=== PATIENT | female | born 1945 | race Caucasian/White ===

== ENCOUNTER 2017-01-21 17:21 | Inpatient (IN) | payer OTHER, MEDICARE ==
[2017-01-21] MEDS ORDERED: NS 500 ML IV ONE (17:44)
--- NOTE | 2017-01-21 17:44 | EDPHY ---
H & P Stated Complaint: new onset afib Time Seen by Provider: 01/21/17 17:43 HPI/ROS: HPI: This is a 8-year-old female who presents Chief Complaint: rapid heartbeat Location: Heart Quality: Rapid rate Duration: 2 days Signs and Symptoms:+ subjective fever, + chills, + productive cough, + nasal congestion, no sore throat, no chest pain, no shortness of breath, no lower extremity edema, no abdominal pain, no diarrhea, no nausea, no vomiting, no diaphoresis Timing: Sudden onset Severity: Moderate Context: Patient was sent over from [facility] with complaints of upper respiratory symptoms of productive cough, nasal congestion, fatigue, chills, subjective low-grade fevers over the last 2 days. Patient reports that she has felt her heart racing today with a sudden onset. Denies chest pain. She was noted to have atrial fibrillation with a heart rate in the 100s at the PCP office. Past medical history diabetes mellitus, hyperlipidemia. Denies any cardiac history including congestive heart failure. Denies any recent long distance trips or lower extremity swelling. Modifying Factors: Went to her primary care provider today. Comment: ROS: see HPI Constitutional:+ fever, + chills, no weight loss Eyes: No blurred vision Respiratory: No shortness of breath, + cough Cardiovascular: No chest pain Gastrointestinal: No nausea, no vomiting, no diarrhea Genitourinary: No dysuria Extremities: No myalgias Neurologic: No weakness, no numbness Skin: No rashes Hematologic: No bruising, no bleeding MEDICAL/SURGICAL/SOCIAL HISTORY: Medical history: DM, HLD Surgical history: Denies Social history: CONSTITUTIONAL: overweight white pleasant elderly female, accompanied by , ill-appearing but nontoxic, awake and alert, no obvious distress HEENT: Atraumatic and normocephalic, PERRL, EOMI. Tympanic membranes clear. Oropharynx clear, no exudate and moist pink mucosa. Airway patent. No lymphadenopathy. No meningismus. Cardiovascular: Normal S1/S2, telemetry shows heart rate varying between 100- 140s, irregularly irregular rhythm, without murmur rub or gallop. PULMONARY/CHEST: Symmetrical and nontender. Clear to auscultation bilaterally but with diminished bases. Good air movement. No accessory muscle usage. ABDOMEN: Soft, nondistended, nontender, no rebound, no guarding, no peritoneal signs, no masses or organomegaly. No CVAT. EXTREMITIES: 2/2 pulses, no deformities, no clubbing, no cyanosis or edema. NEUROLOGICAL: no focal neuro deficits. GCS 15. SKIN: Warm and dry, no erythema. no rash. Good capillary refill. Source: Patient - Personal History Current Tetanus/Diphtheria Vaccine: Unsure Current Tetanus Diphtheria and Acellular Pertussis (TDAP): Unsure - Medical/Surgical History Hx Asthma: No Hx Chronic Respiratory Disease: No Hx Diabetes: Yes Hx Cardiac Disease: Yes Hx Renal Disease: No Hx Cirrhosis: No Hx Alcoholism: No Hx HIV/AIDS: No Hx Splenectomy or Spleen Trauma: No Other PMH: high cholesterol, diabetes type 2 - Social History Smoking Status: Never smoked Constitutional: Initial Vital Signs Temperature (C) 37.1 C 01/21/17 17:32 Heart Rate 110 H 01/21/17 17:32 Respiratory Rate 17 01/21/17 17:32 Blood Pressure 153/106 H 01/21/17 17:32 O2 Sat (%) 87 L 01/21/17 17:32 O2 Delivery Mode Nasal Cannula O2 (L/minute) 2 Allergies/Adverse Reactions: No Known Allergies Allergy (Unverified 01/21/17 17:38) Home Medications: Medication Instructions Recorded Atorvastatin Calcium [Lipitor 40 80 mg PO DAILY 01/21/17 mg (*)] Cholecalciferol Vit D3 [Vitamin D3 1,000 units PO DAILY 01/21/17 (*)] Herbals/Supplements -Info Only 1 ea PO DAILY 01/21/17 Levothyroxine [Synthroid 137 mcg 137 mcg PO DAILY06 01/21/17 (*)] Hess[place]-3 Fatty Acids [Fish Oil 1000 1,000 mg PO BID 01/21/17 mg (*)] glipiZIDE [Glipizide] 5 mg PO BID 01/21/17 metFORMIN HCL [Metformin HCl] 1,000 mg PO BID 01/21/17 Medical Decision Making - Diagnostics EKG Interpretation: 12 lead EKG: Indication: Arrhythmia Rhythm: Atrial fibrillation, rate of 114 [place]: Normal Intervals: Normal QRS: Normal ST segments: Normal T waves: Borderline flat INTERPRETATION: No acute ischemic changes The 12 lead EKG was interpreted by myself and with Dr. Albarran. Imaging Results: Imaging Impressions Chest X-Ray 01/21/17 17:45 Impression: 1. Moderate cardiac enlargement of the central pulmonary vascular prominence. 2. Underlying emphysema.. ED Course/Re-evaluation: Blood cultures, lactic acid, labs, EKG, chest x-ray, IV medications Differential includes community-acquired pneumonia, congestive heart failure, pulmonary embolism, new onset AFib with RVR Reviewed EKG with Dr. Albarran 1750: AFib with RVR noted on telemetry; IV Cardizem 10 mg bolus and drip initiated. Chest x-ray my read shows no markie infiltrate/effusion PRo BNP ~1100 No acute ischemic changes seen on EKG and troponin #1 Unremarkable. 0: Telemetry monitoring shows heart rate 80-100 beats per minute atrial fibrillation 1924: ED decision to consult for admission, spoke with Hospitalist, Dr. Moody , who kindly agrees to admit patient and provide further care. Differential Diagnosis: Shortness of breath including but not limited to pulmonary infectious process, COPD, asthma, pulmonary embolus and congestive heart failure. Chest pain including but not limited to myocardial ischemia, pulmonary embolus, chest wall pain, pleural inflammation and pulmonary infectious causes. Critical Care Time: I spent a total of 36 minutes of critical care time in obtaining history, performing a physical exam, bedside monitoring of interventions, collecting and interpreting tests and discussion with consultants but not including time spent performing procedures. Dx: Afib RVR - Data Points Laboratory Results: Laboratory Results 01/21/17 17:50 01/21/17 17:50 01/21/17 01/21/17 01/21/17 17:50 17:50 17:50 WBC RBC Hgb Hct MCV MCH MCHC RDW Plt Count MPV Neut % (Auto) Lymph % (Auto) Burnett % (Auto) Eos % (Auto) Baso % (Auto) Nucleat RBC Rel Count Absolute Neuts (auto) Absolute Lymphs (auto) Absolute Monos (auto) Absolute Eos (auto) Absolute Basos (auto) Absolute Nucleated RBC Immature Gran % Immature Gran # PT 13.4 SEC SEC (12.0-15.0) INR 1.03 (0.83-1.16) APTT 27.0 SEC SEC (23.0-38.0) VBG Lactic Acid 1.2 mmol/L mmol/L (0.7-2.1) Sodium 137 mEq/L mEq/L (134-144) Potassium 4.5 mEq/L mEq/L (3.5-5.2) Chloride 102 mEq/L mEq/L (97-110) Carbon Dioxide 22 mEq/l mEq/l (22-31) Anion Gap 13 mEq/L mEq/L (8-16) BUN 18 mg/dL mg/dL (7-23) Creatinine 0.7 mg/dL mg/dL (0.6-1.0) Estimated GFR > 60 Glucose 145 mg/dL H mg/dL (70-100) Calcium 9.7 mg/dL mg/dL (8.5-10.4) Troponin I < 0.012 ng/mL ng/mL (0.000-0.034) NT-Pro-B Natriuret Pep 1140 pg/mL H pg/mL (0-125) 01/21/17 17:50 WBC 10.48 10^3/uL H 10^3/uL (3.80-9.50) RBC 5.05 10^6/uL 10^6/uL (4.18-5.33) Hgb 14.4 g/dL g/dL (12.6-16.3) Hct 44.7 % % (38.0-47.0) MCV 88.5 fL fL (81.5-99.8) MCH 28.5 pg pg (27.9-34.1) MCHC 32.2 g/dL L g/dL (32.4-36.7) RDW 12.7 % % (11.5-15.2) Plt Count 212 10^3/uL 10^3/uL (150-400) MPV 11.7 fL fL (8.7-11.7) Neut % (Auto) 62.5 % % (39.3-74.2) Lymph % (Auto) 18.7 % % (15.0-45.0) Burnett % (Auto) 13.1 % H % (4.5-13.0) Eos % (Auto) 4.4 % % (0.6-7.6) Baso % (Auto) 0.8 % % (0.3-1.7) Nucleat RBC Rel Count 0.0 % % (0.0-0.2) Absolute Neuts (auto) 6.56 10^3/uL H 10^3/uL (1.70-6.50) Absolute Lymphs (auto) 1.96 10^3/uL 10^3/uL (1.00-3.00) Absolute Monos (auto) 1.37 10^3/uL H 10^3/uL (0.30-0.80) Absolute Eos (auto) 0.46 10^3/uL H 10^3/uL (0.03-0.40) Absolute Basos (auto) 0.08 10^3/uL 10^3/uL (0.02-0.10) Absolute Nucleated RBC 0.00 10^3/uL 10^3/uL (0-0.01) Immature Gran % 0.5 % % (0.0-1.1) Immature Gran # 0.05 10^3/uL 10^3/uL (0.00-0.10) PT INR APTT VBG Lactic Acid Sodium Potassium Chloride Carbon Dioxide Anion Gap BUN Creatinine Estimated GFR Glucose Calcium Troponin I NT-Pro-B Natriuret Pep Medications Given: Discontinued Medications Diltiazem HCl (Cardizem 25 Mg/5 Ml Vial) 10 mg IVP EDNOW ONE Stop: 01/21/17 17:49 Last Admin: 01/21/17 18:12 Dose: 10 mg Sodium Chloride (Ns) 500 mls @ 1,000 mls/hr IV EDNOW ONE PRN Reason: Protocol Stop: 01/21/17 18:13 Last Admin: 01/21/17 18:12 Dose: 500 mls Diltiazem HCl 125 mg/ Dextrose 125 mls @ 0 mls/hr IV EDNOW ONE; As Directed PRN Reason: Protocol Stop: 01/21/17 17:49 Last Admin: 01/21/17 18:31 Dose: 125 mls Departure - Departure Disposition: [facility] Acute Clinical Impression: New onset atrial fibrillation, Atrial fibrillation with RVR
[2017-01-21] MEDS ORDERED: DILTIAZEM 25 MG/5 ML VIAL IVP ONE (17:48)
[2017-01-21] MEDS ORDERED: DILTIAZEM 125 MG in D5W 125 ML IV ONE (17:48)
--- NOTE | 2017-01-21 17:52 | CPEKG ---
Heart Rate: 114 RR Interval: 526 QRSD Interval: 86 QT Interval: 312 QTC Interval: 430 QRS Ethan: 42 T Wave Ethan: -4 EKG Severity - ABNORMAL ECG - EKG Impression: ATRIAL FIBRILLATION, V-RATE 89-163 EKG Impression: LOW VOLTAGE IN FRONTAL LEADS EKG Impression: BORDERLINE T ABNORMALITIES, INFERIOR LEADS Electronically Signed By: Jackie Albarran 21-Jan-2017 21:53:29
[2017-01-21 18:00] LABS: % IMMATURE GRANULYOCYTES 0.5 % (0.0-1.1); ABSOLUTE IMMATURE GRANULOCYTES 0.05 10^3/uL (0.00-0.10); ADD DIFF? NO; ADD MORPH? NO; ADD SCAN? NO; ATYPICAL LYMPHOCYTE FLAG 20 (0-99); FRAGMENT RBC FLAG 0 (0-99); HEMATOCRIT 44.7 % (38.0-47.0); HEMOGLOBIN 14.4 g/dL (12.6-16.3); LEFT SHIFT FLG 0 (0-99); LIPEMIA HEMOLYSIS FLAG 80 (0-99); MEAN CELL HEMOGLOBIN 28.5 pg (27.9-34.1); MEAN CELL HEMOGLOBIN CONCENTR. 32.2 g/dL (32.4-36.7); MEAN CELL VOLUME 88.5 fL (81.5-99.8); MEAN PLATELET VOLUME 11.7 fL (8.7-11.7); PLATELET CLUMPS FLAG 0 (0-99); PLATELET COUNT 212 10^3/uL (150-400); RED BLOOD CELL COUNT 5.05 10^6/uL (4.18-5.33); RED CELL DISTRIBUTION WIDTH 12.7 % (11.5-15.2)
[2017-01-21 18:10] LABS: INR 1.03 (0.83-1.16); PROTIME(PATIENT) 13.4 SEC (12.0-15.0)
[2017-01-21 18:15] LABS: ANION GAP 13 mEq/L (8-16); CALCIUM 9.7 mg/dL (8.5-10.4); CARBON DIOXIDE 22 mEq/l (22-31); CHLORIDE 102 mEq/L (97-110); CREATININE 0.7 mg/dL (0.6-1.0); GLOMERULAR FILTRATION RATE > 60; GLUCOSE 145 mg/dL (70-100); POTASSIUM 4.5 mEq/L (3.5-5.2); SODIUM 137 mEq/L (134-144)
[2017-01-21 18:27] LABS: TROPONIN I < 0.012 ng/mL (0.000-0.034)
[2017-01-21] MEDS ORDERED: DILTIAZEM 125 MG in D5W 125 ML IV SCH (22:00)
[2017-01-21] MEDS: APIXABAN 5 MG TAB PO SCH (22:36)
[2017-01-21] MEDS: BENZONATATE 100 MG CAP PO PRN (22:45)
--- NOTE | 2017-01-21 23:03 | PDGENHP ---
History and Physical History and Physical: HISTORY AND PHYSICAL CC: Ongoing cough for more than 1 week with no fever or shortness of breath HISTORY: The patient comes into the ER today with main complaint of cough going on for more than a week. However on cardiac rehab nurse she had irregular tachycardia in on EKG had atrial fibrillation with heart rate in the mid 130s. The patient herself has no history of atrial fibrillation, does not now and has never had palpitations, chest pain, heart failure symptoms. She has had no stroke like symptoms ever or TIAs, has no other heart history, no thyroid history, no heavy alcohol use, or other reasons to have atrial fibrillation. At this time other than her cough she says she feels fine. There is no shortness of breath and no fever symptoms ROS: A comprehensive 10 system review revealed no other significant findings PAST MEDICAL HISTORY: Diabetes mellitus type 2 Hyperlipidemia Hypothyroidism FAMILY MEDICAL HISTORY: She is from [place] came here 3 years ago and is not really connected that well with her family is unaware of specific illnesses SOCIAL HISTORY: [place] her [place] years ago. They have raised 2 sons who are often working. She has not used tobacco or alcohol or street drugs MEDICATIONS: The patients list has been reconciled by our clinical pharmacist in the EMR. I have reviewed the list and ordered appropriate medicines. PHYSICAL EXAMINATION: Vital Signs: Initially pulse was in the 130s to 140 range with an irregular pulse, now on a diltiazem drip the pulses in the 80s, vitals otherwise stable without fever Paving Foreman: Rapid atrial fibrillation Examination: General: alert, oriented, good mentation, relaxed Skin: warm, dry, good color, no rash HEENT: normal Neck: no mass or jvd Resps: relaxed Lungs: clear breath sounds Heart: irregular, heart rate well controlled 80s at the time I visited her, no murmur Abdomen: soft, nondistended, nontender, +BS, no mass Upper Extremities: normal Lower Extremities: no edema, warm No Bleeding or bruising Neurologic: normal speech/language, normal line patroller, no focal weakness IV site: looks normal LABORATORY DATA: White blood cell count 10, otherwise stable CBC Chemistry panel with blood sugar of 140, BNP is a little high, 1st troponin normal I have ordered a TSH that is pending I have ordered a respiratory pathogen panel that is pending as well RADIOLOGY STUDIES: Chest x-ray done in the ER, my interpretation: No congestive heart failure pneumonia pleural effusions; the cardiac silhouette is at least mildly enlarged 12 LEAD EKG: Rapid atrial fibrillation otherwise normal ASSESSMENT: # new diagnosis of since asymptomatic atrial fibrillation of uncertain duration ; is uncertain at time of this is permanent or intermittent: -Her rate is rapid and requires control at this time -her chads Vasc 2 score is at least 3 with female age and diabetes and anticoagulation is this is recommended and I did review this in detail with her # ongoing cough suggesting possible upper respiratory viral infection but of uncertain etiology PLANS: -she has been started on rate control with diltiazem in the ER and this is so far successful in well-tolerated -I did discuss with her the need for anticoagulation and she agrees and will start Eliquis at this time -echocardiogram to assess cardiac dimensions and functions -at this time if we can get her with good rate control overnight in she may be able to discharge; as is unclear how long she has had the atrial fibrillation it was would seem that she may not be ideal for cardioversion at this time but will have Cardiology assess her for this question -check thyroid function -symptomatic treatment for her cough, and I have ordered a respiratory viral pathogen panel which is pending I have reviewed the patient's case in detail with Dr. Keyshawn Salmon
[2017-01-22 05:44] LABS: ANION GAP 10 mEq/L (8-16); CALCIUM 9.4 mg/dL (8.5-10.4); CARBON DIOXIDE 25 mEq/l (22-31); CHLORIDE 103 mEq/L (97-110); CREATININE 0.8 mg/dL (0.6-1.0); GLOMERULAR FILTRATION RATE > 60; GLUCOSE 108 mg/dL (70-100); MAGNESIUM 1.8 mg/dL (1.6-2.3); POTASSIUM 4.1 mEq/L (3.5-5.2); SODIUM 138 mEq/L (134-144)
[2017-01-22] MEDS ORDERED: LEVOTHYROXINE 137 MCG TAB PO SCH (06:00)
[2017-01-22] MEDS: glipiZIDE 5 MG TAB PO SCH ×2 (11:06→20:25)
[2017-01-22] MEDS: metFORMIN HCL 500 MG TAB PO SCH ×2 (11:06→20:24)
[2017-01-22] MEDS: CHOLECALCIFEROL VIT D3 1,000 UNITS TAB PO SCH (11:06)
[2017-01-22] MEDS: OMEGA-3 FATTY ACIDS 1,000 MG CAP PO SCH ×2 (11:06→20:25)
[2017-01-22] MEDS ORDERED: NS 1,000 ML IV SCH (11:15)
[2017-01-22] MEDS: APIXABAN 5 MG TAB PO SCH ×2 (11:48→20:25)
--- NOTE | 2017-01-22 12:06 | ASMTCASEMG ---
Living Arrangements What is your living Answers: With Spouse arrangement? Who do you live with? Type Of Residence What kind of residence do Answers: House you live in? Discharge Plan Comments Coordination Status Comments Notes: Chart reviewed and spoke wJsoephine Ramirez RN. Pt is a 71 y/o female admitted w/ KASSY RVR. Pt has started a blood thinner and will be on it for a couple of weeks. Pt will most likely discharge independent when medically stable. CM available for changes. No therapies ordered at this time. Date Signed: 01/22/2017 12:05 PM Electronically Signed By:MADDIE Taveras
[2017-01-22] MEDS: ATORVASTATIN CALCIUM 40 MG TAB PO SCH (15:11)
--- NOTE | 2017-01-22 16:24 | PDMN ---
Medical Necessity Medical necessity: change to IP; los>2mn for ongoing afib w rvr, for continued diltiazem gtt; comorbid DM, HLD; per progress note and order 01/22/17
--- NOTE | 2017-01-22 17:11 | HOSPPROG ---
Hospitalist Progress Note Assessment/Plan: * New onset afib -possible cardioversion with cardiology today - pt NPO -currently rate controlled on IV diltiazem gtt -ECHO pending -on Eliquis * Hypothyroidism -TSH low - will reduce Synthroid * DM II -metformin * Viral URI Subjective: NO complaints. Objective: Vital Signs Temp Pulse Resp BP Pulse Ox 36.6 C 85 12 129/72 H 92 01/22/17 16:00 01/22/17 16:00 01/22/17 12:00 01/22/17 16:00 01/22/17 12:00 01/21/17 01/22/17 01/23/17 05:59 05:59 05:59 Intake Total 487.4 Balance 487.4 PT 13.4 SEC (12.0-15.0) 01/21/17 17:50 INR 1.03 (0.83-1.16) 01/21/17 17:50 d/w Dr. Montenegro - he will see her and is considering cardioversion tele reviewed - afib, rate controlled Laboratory Tests 01/21/17 01/22/17 17:50 03:53 WBC 10.48 H Hct 44.7 Plt Count 212 TSH 0.392 L - Physical Exam Constitutional: no apparent distress, appears nourished, not in pain Cardiovascular: no murmur, rub, or gallop, irregularly irregular, No edema Respiratory: no respiratory distress, no rales or rhonchi, clear to auscultation Gastrointestinal: normoactive bowel sounds, soft, non-tender abdomen, no palpable masses Skin: no rashes or abrasions, no fluctuance, no induration Neurologic: AAOx3, sensation intact bilaterally Psychiatric: interacting appropriately, not anxious, not encephalopathic, thought process linear ICD10 Worksheet Patient Problems: Problems Problem Status Onset Atrial fibrillation with RVR Acute New onset atrial fibrillation Acute
--- NOTE | 2017-01-22 17:30 | ECHO ---
[email or web address] [address] [address] Main: [phone] Fax: Transthoracic Echocardiogram Name: JAROD MEDINA MR#: [id number] Study Date: 01/22/2017 Study Time: 09:14 AM Date of : 1945 Age: 71 year(s) Height: 167.6 cm (66 in.) Weight: 87.09 kg (192 lb.) BSA: 1.97 m2 Gender: Female Examination: Echo Indication: New onset A-fib Image Quality: Contrast: Requested by: Stanley Moody BP: / Heart Rate: Rhythm: Atrial fibrillation Indication: New onset A-fib Procedure Staff Furnace Setter: Candido Jacobs Reading Physician: Joseph Montenegro Requesting Provider: Conclusions: Normal size left ventricle. The rhythm is AFIB.. EF is 61 %. No regional wall motion abnormality. The left atrium is severely dilated. The right atrium is mildly to moderately dilated. Mild mitral valve regurgitation is present. There are no significant valvular abnormalities. Measurements: Chambers Valvular Assessment AV/MV Valvular Assessment TV/PV Normal Normal Normal Name Value Range Name Value Range Name Value Range Ao Eve (MM): 2.6 cm (2.2 cm-3.7 AV Vmax: 1.51 m/s (1 m/s-1.7 TR Vmax: 2.95 mm/s ( - ) cm) m/s) TR PGmax: 35 mmHg ( - ) IVSd (2D): 0.9 cm (0.6 cm-1.1 AV maxP mmHg ( - ) syst. PAP: 40 mmHg ( - ) cm) LVOT Vmax: 0.74 m/s (0.7 m/s-1.1 PV Vmax: 0.91 m/s (0.6 m/s-0.9 LVDd (2D): 5.0 cm (3.9 cm-5.3 m/s) m/s) cm) MV E Vmax: 1.00 m/s ( - ) PV PGmax: 3 mmHg ( - ) LVDs (2D): 3.4 cm (2.1 cm-4 cm) LVPWd (2D): 1.2 cm ( - ) LVEF (2D): 61 (>=54 %) Continued Measurements: Chambers Valvular Assessment AV/MV Valvular Assessment TV/PV Name Value Name Value Name Value LADs Lon.0 cm MV E/E' Septal: 14.40 CVP (est.): 5 mmHg Patient: JAROD MEDINA Study Date: 01/22/2017 Page 1 of 2 09:14 AM LA Area: 25.4 cm2 MV E/E' Lateral: 9.40 LA Volume: 92 ml LA Volume Index: 46.7 ml/m2 Findings: Left Ventricle: Normal size left ventricle. The rhythm is AFIB.. Normal global systolic LV function. EF is 61 %. No regional wall motion abnormality. Right Ventricle: Normal size right ventricle. Normal RV function. Left Atrium: The left atrium is severely dilated. Right Atrium: The right atrium is mildly to moderately dilated. Mitral Valve: The mitral valve is normal in appearance and function. Mild mitral valve regurgitation is present. Aortic Valve: The aortic valve is tri-leaflet. The aortic valve is normal in appearance and function. There is no aortic valve regurgitation. Tricuspid Valve: The tricuspid valve is normal in appearance and function. Pulmonic Valve: The pulmonic valve is normal in appearance. Trivial pulmonic valve regurgitation. Aorta: The aorta is normal. Pericardium: Trivial anterior pericardial effusion. (No Signature Object) Patient: JAROD MEDINA Study Date: 01/22/2017 Page 2 of 2 09:14 AM [id number]
[2017-01-22] MEDS: DILTIAZEM 30 MG TAB PO SCH ×2 (18:06→23:59)
--- NOTE | 2017-01-22 18:06 | GCON ---
[f rep st] CONSULTATION CARDIOLOGY CONSULTATION DATE OF CONSULTATION: 01/22/2017 INDICATIONS: Atrial fibrillation. HISTORY OF PRESENT ILLNESS: The patient is a pleasant 71-year-old female who has no previous cardiov ascular history. She is seen on the Telemetry Unit with newly discovered atrial fibrillation. She a ctually came to the Emergency Department because she has been experiencing symptoms of a severe cold. She has had a cough for about a week now. This has been fairly nonproductive. She has not had any fever, chills or sweats, although she has felt fatigued. In the Emergency Department, she was noted to be in atrial fibrillation with a resting heart rate of 114 beats per minute. She was hemodynamic ally stable at that time. Because of this, she was administered intravenous diltiazem, admitted to [facility]. She does have a history of type 2 diabetes. Her CHADS VASc score is 3, corresponding t o 3.2% annual risk for stroke. Because of this, she was started on Eliquis earlier today. She has n o history of bleeding diathesis. On her diltiazem, her heart rate is under nice control. PAST MEDICAL HISTORY: 1. Type 2 diabetes mellitus. 2. Hyperlipidemia. 3. Hypothyroidism. FAMILY HISTORY: She is from [place]. She and her immigrated here 38 years ago. She really has no idea of her family medical history. SOCIAL HISTORY: She is and accompanied by her . They have 2 sons, one of which is a nurse director of maternity services. She does not use alcohol or drugs. MEDICATIONS: Herbal supplements, vitamin D3, atorvastatin 40 mg daily, metformin 1,000 mg twice manuela y, glipizide 5 mg twice daily, [place]-3 fatty acids 1,000 mg twice daily, and levothyroxine 137 mcg da adair. ALLERGIES: She has no known drug allergies. SURGICAL HISTORY: Noncontributory. REVIEW OF SYSTEMS: A full 10-point review of systems was negative with the exception of the above po sitives. PHYSICAL EXAMINATION: VITAL SIGNS: Blood pressure 129/72, heart rate is 91 and irregular, O2 satura tions are 95% on 2 L. She is afebrile. GENERAL: She is a healthy female in no acute distress. HEENT: No jugular venous distention, adenopathy, or thyromegaly. RESPIRATORY: She is u sing no accessory muscles. She speaks in full sentences. On auscultation, she has clear lung ortega bilaterally. CARDIAC: Precordial inspection is unremarkable. PMI is nondisplaced. On auscultatio n, she has an irregularly irregular rhythm. She has no murmurs, gallops, or rubs. ABDOMEN: Soft an d nontender. She has normoactive bowel sounds. She has no masses or hepatosplenomegaly. She has no npalpable aorta. EXTREMITIES: Warm and well perfused with no edema. VASCULATURE: She has 2+ radia l and dorsal pedal pulses. NEUROLOGIC: She is alert and oriented with a pleasant mood and affect. She moves all 4 limbs spontaneously. LABORATORY DATA: Her EKG is as described above, indicating atrial fibrillation with a resting heart rate of 114 beats per minute. She has borderline low voltages in the limb leads. Her chest x-ray demonstrated moderate cardiomegaly and underlying emphysema. White blood cell count 10.48, hematocrit 44.7, platelet count 212,000, INR 1.03. Her sodium 138, pot assium 4.1, BUN 17, creatinine 0.8, blood sugar 108, N-terminal proBNP 1,140. Troponin negative. TS H suppressed at 0.392. Nasal swab for flu is negative. IMPRESSION: The patient is 71 years old, and presents now with new onset atrial fibrillation. This is either asymptomatic or only very mildly symptomatic. She actually came to the hospital more for c old symptoms. Her CHADS VASc score is 3, consistent with a 3.2% annual risk for stroke. She has, ap propriately, been started on Eliquis for thromboprophylaxis and has no bleeding diathesis. Her N-ter vernon proBNP is slightly elevated. However, she does not clinically appear to be in heart failure. An echocardiogram was ordered. However, I have not reviewed that yet. Her heart rate when she came to the hospital was not exceptionally fast. She is under nice rate control on minimal IV diltiazem. RECOMMENDATIONS: 1. We will transition her over to p.o. Cardizem. I have written for 30 mg 4 times daily. 2. We will plan to continue her anticoagulation. 3. I would like to review her echocardiogram. 4. I would defer to her primary team regarding changing her Synthroid dose in light of her suppresse d TSH. 5. Hopefully, with these measures, we will get her under a nice rate control, at which point I think she can be discharged home in the morning. 6. As an outpatient, we will plan for a reassessment of her arrhythmia within the next several weeks , and consider potentially a cardioversion. Additionally, we may perform an ischemia evaluation, as well as an evaluation for possible sleep apnea. /[id number]/MODL
[2017-01-22] MEDS: BENZONATATE 100 MG CAP PO PRN (20:30)
[2017-01-23 05:22] LABS: % IMMATURE GRANULYOCYTES 0.5 % (0.0-1.1); ABSOLUTE IMMATURE GRANULOCYTES 0.04 10^3/uL (0.00-0.10); ADD DIFF? NO; ADD MORPH? NO; ADD SCAN? NO; ATYPICAL LYMPHOCYTE FLAG 50 (0-99); FRAGMENT RBC FLAG 0 (0-99); HEMOGLOBIN 14.3 g/dL (12.6-16.3); LEFT SHIFT FLG 0 (0-99); LIPEMIA HEMOLYSIS FLAG 80 (0-99); MEAN CELL HEMOGLOBIN 28.7 pg (27.9-34.1); MEAN CELL HEMOGLOBIN CONCENTR. 31.8 g/dL (32.4-36.7); MEAN CELL VOLUME 90.2 fL (81.5-99.8); MEAN PLATELET VOLUME 12.3 fL (8.7-11.7); PLATELET CLUMPS FLAG 0 (0-99); PLATELET COUNT 204 10^3/uL (150-400); RED BLOOD CELL COUNT 4.99 10^6/uL (4.18-5.33); RED CELL DISTRIBUTION WIDTH 12.5 % (11.5-15.2)
[2017-01-23] MEDS ORDERED: LEVOTHYROXINE 112 MCG TAB PO SCH (06:00)
[2017-01-23] MEDS: DILTIAZEM 30 MG TAB PO SCH ×2 (06:43→13:16)
[2017-01-23 07:44] VITALS: BP 117/75; PULSE 78; RESP 12; TEMP 97.6; O2SAT 94
[2017-01-23] MEDS: glipiZIDE 5 MG TAB PO SCH (08:43)
[2017-01-23] MEDS: ATORVASTATIN CALCIUM 40 MG TAB PO SCH (08:44)
[2017-01-23] MEDS: metFORMIN HCL 500 MG TAB PO SCH (08:44)
[2017-01-23] MEDS: OMEGA-3 FATTY ACIDS 1,000 MG CAP PO SCH (08:44)
[2017-01-23] MEDS: CHOLECALCIFEROL VIT D3 1,000 UNITS TAB PO SCH (08:44)
[2017-01-23] MEDS: BENZONATATE 100 MG CAP PO PRN (08:44)
[2017-01-23] MEDS: APIXABAN 5 MG TAB PO SCH (08:44)
--- NOTE | 2017-01-23 11:19 | GDS ---
[f rep st] DISCHARGE SUMMARY DIAGNOSES: 1. Atrial fibrillation with rapid ventricular response. 2. Hypothyroid with slightly low TSH. 3. Diabetes mellitus type 2. 4. Viral upper respiratory infection. HOSPITAL COURSE: This is a 71-year-old female, who presented with atrial fibrillation with rapid blade tricular response. She was seen by Cardiology. Echocardiogram showed a dilated left atrium, otherwi se not terribly remarkable. Her TSH was slightly low at 0.392. Initially treated with Eliquis as we ll as a diltiazem drip. Transition to oral diltiazem with good rate control. She will be discharged with close followup with Cardiology. Medication changes include Cardizem 120 mg long-acting daily, Eliquis 5 mg p.o. twice daily (she was given a 30 day trial for this), slight decrease in her Synthro id to 112 mcg daily. She will follow up with Dr. Salmon. Will consider ischemic eval as well as DC cardioversion as an outpatient. BILLING: I spent more than 30 minutes on the day of discharge coordinating care. /[id number]/MODL
--- NOTE | 2017-01-23 11:27 | PDCARPN ---
Cardiology Progress Note Chief Complaint: Atrial Fibrillation Assessment/Plan: Assessment: ATRIAL FIBRILLATION Diltiazem drip was started on admission, then was transitioned to oral Cardizem 30 mg QID. She continues on Eliquis for anticoagulation. She will return to clinic to follow up with Dr Salmon in 3 to 4 weeks. Should she remain in Atrial Fibrillation, she will be scheduled for a DCCV and possibly MONICA prior. This was explained to her and her Friend who speaks Guyanese well and was able to translate anything not understood. Desmond is agreeable with this plan. She has been started on the oral Cardizem last evening and is tolerating it well. Plan:Continue on Cardizem 30 mg QID, and Eliquis BID. Stable for discharge. 01/23/17 11:21 01/23/17 11:36 Reviewed/Discussed With: family, hospitalist, multidisciplinary team Time Spent With Patient: 20 minutes Objective: Vital Signs (8 Hrs) Temp Pulse Resp BP Pulse Ox 01/23/17 07:42 36.4 C 78 12 117/75 94 01/23/17 03:51 36.2 C 83 18 109/62 96 Intake/Output (24 Hrs) 01/22/17 01/23/17 01/24/17 05:59 05:59 05:59 Intake Total 837.4 Balance 837.4 Intake: Oral (ml) 240 IV Infused (ml) 597.4 Diltiazem 125 mg In D5w 10.4 125 ml @ Per Protocol IV CONT KAIDEN Rx#:[id number] Ns 1,000 ml @ 100 mls/hr 587 IV CONT KAIDEN Rx#: [id number] Other: Intake Quantity Yes Sufficient Number of Voids Toilet 2 Result Diagrams: 01/23/17 03:54 01/22/17 03:53 - Physical Exam Constitutional: no apparent distress Cardiovascular: no murmurs, no rubs, no gallops, irregularly irregular Peripheral Pulses: 2+: dorsalis-pedis (R), dorsalis-pedis (L) Respiratory: clear to auscultate bilat, no crackles, no wheezes Skin: warm, no edema Neurologic: AAOx3 Psychiatric: cooperative, interactive ICD10 Worksheet Patient Problems: Problems Problem Status Onset Atrial fibrillation with RVR Acute New onset atrial fibrillation Acute
--- NOTE | 2017-01-23 15:06 | ASDISCHSUM ---
Discharge Information Plan Status:Home with No Needs Medically Cleared to Leave:01/23/2017 Discharge Date:01/23/2017 01:50 PM CM D/C Disposition:Home, Routine, Self-Care ADT D/C Disposition:Home, Routine, Self-Care Projected Discharge Date:01/23/2017 01:50 PM Transportation at D/C:Family Discharge Delay Reason: Follow-Up Date:01/23/2017 01:50 PM Discharge Slot: Final Diagnosis:Afib w/ RVR, hypothyroid, DM type II, Viral URI Placement Information Patient Contact Information Contact Name:DAISY Relationship: Address:[address] [address] Work Phone: [facility]:[place] Alternate Phone: [facility]/Zip Code:[place] [address] Email: Financial Information Financial Class: Primary Plan Desc:MEDICARE OUTPATIENT Primary Plan Number:[id number] Secondary Plan Desc:[employer]ARP/MDR SUPPLEMENT Secondary Plan Number:[id number] Assessment Information [facility] Initial CM Assessment Living Arrangements What is your living Answers: With Spouse arrangement? Who do you live with? Type Of Residence What kind of residence do Answers: House you live in? Discharge Plan Comments Coordination Status Comments Notes: Chart reviewed and spoke w/ CHRIS aRmirez. Pt is a 71 y/o female admitted w/ KASSY RVR. Pt has started a blood thinner and will be on it for a couple of weeks. Pt will most likely discharge independent when medically stable. CM available for changes. No therapies ordered at this time. Date Signed: 01/22/2017 12:05 PM Electronically Signed By:MADDIE Taveras [facility] CM Progress Note CM Note CM Note Notes: Reviewed chart re: d/c poc, pt's progress. Pt to discharge home independently w/ family support and no identified needs. IM not signed, pt admit <48 hrs. Pt may need a cardioversion as an oupt; f/u as directed. CM avail for any further issues or concerns. Date Signed: 01/23/2017 03:05 PM Electronically Signed By:Imani He RN Intervention Information Intervention Type:*Incorrect Registration Date of Service:01/22/2017 10:52 AM Patient Type:Inpatient Staff Member:CHRIS Bronson, Daija Hours: Discipline: Severity: Comment: Intervention Type:*Occurence 72 Date of Service:01/21/2017 10:59 AM Patient Type:Inpatient Staff Member:CHRIS Walker, Carmel Hours:0.25 Discipline: Severity:1 (0-1 Hours) Comment:Occ 72 for 01/21/2017 as patient discha rged 01/23/2017 10:59 (< 2 MN LOS after patient admission status changed from observation to inpatient).
--- NOTE | 2017-01-23 18:40 | ASMTCMCOM ---
CM Note CM Note Notes: Post Discharge Note: Call received from [facility] on in [place]. [facility] unable to fill pt's Eliquis prescription sec to insurance denial. Pt has Medicare part D. Per pharmacist, Eliquis not covered. CHRIS Carrillo spoke w/ Dr. Escobar per , no good alternatives. Pt given free 30-day trial offer from [employer]. Information provided to [facility] from trial card: RxBIN: [id number] RxPCN: [id number] GRP: [id number] ID: [id number] Call placed to Pharmacy support at [facility] . Per Daja, pt can utilize 30 day supply and can apply for medication assistance through [facility] pt assistance program . Call placed to pt at home; update provided. Family friend to come back to hospital to obtain card. Pt to apply for assistance in next day or two. [facility] filled 30-day supply. Per Pharmacist at [facility], pt should discuss Xarelto as an alternative w/ her . Xarelto is covered under Medicare part D. Update provided to pt. CM avail for any further issues or concerns. Date Signed: 01/23/2017 06:40 PM Electronically Signed By:Imani He RN
== END 2017-01-23 13:50 | disposition home or self-care (01) | DRG 310 ==
LOC: INTOOBSV 19:18 → F2W 20:25 → OBSVTOIN 01-22 15:14
PROVIDERS: ADMIT Internal Medicine; ATTEND Internal Medicine
DX: I48.91 Unspecified atrial fibrillation (principal); E03.9 Hypothyroidism, unspecified; E11.9 Type 2 diabetes mellitus without complications; J06.9 Acute upper respiratory infection, unspecified; E78.00 Pure hypercholesterolemia, unspecified
CPT/HCPCS: 93005-PO; 96365; 97161-GP; G0378; G0463-PO; G8978-GP-CI; G8980-GP-CI

== ENCOUNTER 2017-02-03 13:40 | Day surgery (SDC) | payer OTHER, MEDICARE ==
[2017-02-03] MEDS ORDERED: fentaNYL 100 MCG/2 ML INJ IVP ONE (13:50)
[2017-02-03] MEDS ORDERED: ATROPINE SULFATE 1 MG/10 ML SYR IVP ONE (13:50)
[2017-02-03] MEDS ORDERED: NS 500 ML IV ONE (13:50)
[2017-02-03] MEDS ORDERED: MIDAZOLAM 2 MG/2 ML VIAL IVP ONE (13:50)
[2017-02-03] MEDS ORDERED: BENZOCAINE UNIT DOSE SPRAY HURRICAINE MM ONE (13:50)
--- NOTE | 2017-02-03 14:17 | CPEKG ---
Heart Rate: 88 RR Interval: 682 QRSD Interval: 90 QT Interval: 420 QTC Interval: 509 QRS [place]: 57 T Wave [place]: 21 EKG Severity - ABNORMAL ECG - EKG Impression: ATRIAL FIBRILLATION EKG Impression: LOW VOLTAGE IN FRONTAL LEADS EKG Impression: MINIMAL ST DEPRESSION, INFERIOR LEADS EKG Impression: BORDERLINE PROLONGED QT INTERVAL Electronically Signed By: Keyshawn Yi 04-Feb-2017 14:01:42
[2017-02-03 14:49] LABS: ANION GAP 11 mEq/L (8-16); CALCIUM 9.5 mg/dL (8.5-10.4); CARBON DIOXIDE 23 mEq/l (22-31); CHLORIDE 104 mEq/L (97-110); CREATININE 0.7 mg/dL (0.6-1.0); GLOMERULAR FILTRATION RATE > 60; GLUCOSE 113 mg/dL (70-100); MAGNESIUM 1.7 mg/dL (1.6-2.3); POTASSIUM 4.4 mEq/L (3.5-5.2); SODIUM 138 mEq/L (134-144)
[2017-02-03 15:08] LABS: INR 1.13 (0.83-1.16); PROTIME(PATIENT) 14.4 SEC (12.0-15.0)
[2017-02-03 15:09] LABS: APTT 30.1 SEC (23.0-38.0)
--- NOTE | 2017-02-03 15:52 | PDHPUP ---
History & Physical Update H&P update statement: This history and physical update is based on an assessment of the patient which was completed after admission or registration (within 24 hours), but prior to the surgery/procedure. H&P update: H&P reviewed & patient examined, no change in patient's condition since H&P completed
--- NOTE | 2017-02-03 16:01 | PDANEPAE ---
ANE History of Present Illness A-fib ANE Past Medical History - Cardiovascular History Hx Hypertension: Yes Hx Arrhythmias: Yes - Pulmonary History Hx Oxygen in Use at Home: No Hx Sleep Apnea: No - Endocrine History Hx Diabetes: Yes Hypothyroid: Yes ANE Review of Systems Review of Systems: ANE Patient History - Allergies Allergies/Adverse Reactions: No Known Allergies Allergy (Unverified 01/21/17 17:38) - Home Medications Home Medications: Atorvastatin Calcium [Lipitor 40 mg (*)] 80 mg PO DAILY 01/21/17 [Last Taken 09/02] Cholecalciferol Vit D3 [Vitamin D3 (*)] 1,000 units PO DAILY 01/21/17 [Last Taken 01/21/17] Herbals/Supplements -Info Only 1 ea PO DAILY 01/21/17 [Last Taken 01/21/17] [place]-3 Fatty Acids [Fish Oil 1000 mg (*)] 1,000 mg PO BID 01/21/17 [Last Taken 01/21/17 08:00] glipiZIDE [Glipizide] 5 mg PO BID 01/21/17 [Last Taken 01/21/17 08:00] metFORMIN HCL [Metformin HCl] 1,000 mg PO BID 01/21/17 [Last Taken 01/21/17 08: 00] - Smoking Hx Smoking Status: Never smoked ANE Labs/Vital Signs - Labs Result Diagrams: 02/03/17 14:29 - Vital Signs Height: 167.64 cm Weight: 87 kg ANE Physical Exam - Airway Neck exam: decreased ROM Mallampati Score: Class 2 Mouth exam: normal dental/mouth exam - Pulmonary Pulmonary: no respiratory distress - Cardiovascular Cardiovascular: irregularly irregular - ASA Status ASA Status: III ANE Anesthesia Plan Anesthesia Plan: MAC
[2017-02-03] MEDS ORDERED: PROPOFOL 200 MG/20 ML VIAL ONE ×2 (16:02)
[2017-02-03] MEDS ORDERED: LIDOCAINE 1% 5 ML SDV ONE (16:03)
--- NOTE | 2017-02-03 16:25 | PDTEE1 ---
MONICA Cardioversion Procedure Procedure: electrical cardioversion, transesophageal echo Indications: atrial fibrillation Anticoagulation: eliquis Procedural Details: Pads were placed in anterior-posterior position. MONICA probe was advanced and standard images obtained. There is no evidence of left atrial or left atrial appendage thrombus. Synchronized cardioversion attempt #1: 200J Results: normal sinus rhythm Conclusions: successful MONICA cardioversion Patient Problems: Problems Problem Status Onset Atrial fibrillation with RVR Acute New onset atrial fibrillation Acute
--- NOTE | 2017-02-03 16:33 | POSTANESTH ---
Post Anesthetic Evaluation Cardiovascular Status: Similar to Pre-Op Cond Respiratory Status: Similar to Pre-op Cond. Level of Consciousness/Mental Status: Alert and Oriented Pain Control: Adequate, Prn Tx Ordered Nausea/Vomiting Control: Adequate, Prn Tx Ordered Complications Possibly Related to Anesthesia: None Noted
--- NOTE | 2017-02-03 17:40 | ECHO ---
[email or web address] [address] [address] Main: [phone] Fax: Transesophageal Echocardiography Name: JAROD MEDINA MR#: [id number] Study Date: 02/03/2017 Study Time: 03:54 PM Date of : 1945 Age: 71 year(s) Height: ( ) Weight: ( ) BSA: Gender: Female Examination: MONICA Indication: Image Quality: Contrast: Requested by: Kaitlyn Carlos Heart Rate: Rhythm: BP: / Procedure Staff Skid Machine Operator: Kate Johnson Physician: Kaitlyn Carlos Requesting Provider: MONICA Exam Details Measurements: Chambers Valvular Assessment AV/MV Valvular Assessment TV/PV Normal Normal Normal Name Value Range Name Value Range Name Value Range Additional Measurements: Findings: Left Ventricle: Normal global systolic LV function. Left Atrium: An agitated saline study was performed and was negative for intracardiac shunting. Left Atrial Appendage: No thrombus in left appendage. Mitral Valve: Moderate to severe mitral regurgitation. Aortic Valve: The aortic valve is tri-leaflet. Tricuspid Valve: Mild tricuspid regurgitation is present. Aorta: There is Grade 1 aorta plaque. Patient: JAROD MEDINA Study Date: 02/03/2017 Page 1 of 2 03:54 PM l1n (No Signature Object) Patient: JAROD MEDINA Study Date: 02/03/2017 Page 2 of 2 03:54 PM [id number]
--- NOTE | 2017-02-04 12:41 | CPEKG ---
Heart Rate: 65 RR Interval: 923 P-R Interval: 200 QRSD Interval: 92 QT Interval: 396 QTC Interval: 412 P [place]: 42 QRS [place]: 66 T Wave [place]: 17 EKG Severity - BORDERLINE ECG - EKG Impression: SINUS RHYTHM EKG Impression: LOW VOLTAGE IN FRONTAL LEADS EKG Impression: BORDERLINE R WAVE PROGRESSION, ANTERIOR LEADS EKG Impression: SINUS RHYTHM HAS REPLACED ATRIAL FIBRILLATION NOTED ON PRIOR Electronically Signed By: Keyshawn Yi 04-Feb-2017 14:02:08
== END 2017-02-03 17:58 | disposition home or self-care (01) ==
LOC: FCATH 13:40
PROVIDERS: ATTEND Internal Medicine Cardiovascular Disease
DX: I48.0 Paroxysmal atrial fibrillation (principal); E78.00 Pure hypercholesterolemia, unspecified; E03.9 Hypothyroidism, unspecified; E11.9 Type 2 diabetes mellitus without complications; F32.9 Major depressive disorder, single episode, unspecified
CPT/HCPCS: J2704

== ENCOUNTER → 2017-07-27 | Outpatient (CLI) | payer OTHER, MEDICARE | LOC: BHFA 11:00 | PROVIDERS: ATTEND Internal Medicine Cardiovascular Disease | DX: I48.91 Unspecified atrial fibrillation (principal) ==

== ENCOUNTER → 2017-09-30 | Outpatient (CLI) | payer OTHER | LOC: BHFA 16:15 | PROVIDERS: ATTEND Internal Medicine Interventional Cardiology | DX: R01.1 Cardiac murmur, unspecified (principal); R94.31 Abnormal electrocardiogram [ECG] [EKG] ==

== ENCOUNTER → 2018-09-29 | Outpatient (CLI) | payer OTHER, MEDICARE | LOC: BHFA 11:30 ==